=== PATIENT | male | born 1995 | race Caucasian/White ===

== ENCOUNTER 2022-10-11 08:03 | Day surgery (SDC) | payer BC ==
--- NOTE | 2022-10-10 09:47 | HP ---
DATE OF SURGERY: 10/11/2022 HISTORY OF PRESENT ILLNESS: The patient is a 27-year-old male presents with perirectal abscess. He had been sent over by Dr. Derek Kelley. He had some abscess and itching there off and on for the past two years. It looks like he had been given antibiotics some time ago. It has drained a little bit yellowish-red at times not really going away. He has been on some antibiotic currently. It does not hurt him today. PAST MEDICAL HISTORY: Hypertension, diabetes. PAST SURGICAL HISTORY: Myringotomy. ALLERGIES: NKDA. SHRIMP. MEDICATIONS: Lisinopril, NovoLog, Levemir. FAMILY HISTORY: None reported. SOCIAL HISTORY: Occasional alcohol. REVIEW OF SYSTEMS: CONSTITUTIONAL: Denies fever or chills. CHEST: Denies shortness of breath. CVS: Denies chest pain. ABDOMEN: Denies abdominal pain. PHYSICAL EXAMINATION: GENERAL: No acute distress. CHEST: Nonlabored. No shortness of breath. CVS: Regular rate and rhythm. ABDOMEN: Soft. : Left sided anal palpable bulge that is not tender on exam. IMPRESSION: Perirectal abscess. PLAN: Rectal exam under anesthesia with excision of perirectal abscess with Dr. Nadir Mirza. As dictated by Sasha Mccabe NP.
[2022-10-11] MEDS ORDERED: EXPAREL 133 MG/10 ML VIAL IJ ONE (08:04)
[2022-10-11] MEDS ORDERED: CLINDAMYCIN-D5W 900 MG/50 ML IV ONE (08:04)
[2022-10-11] MEDS ORDERED: Lactated Ringers 1,000 ML IV SCH (08:30)
[2022-10-11] MEDS ORDERED: Zofran 4 MG/2 ML VIAL ONE (09:34)
[2022-10-11] MEDS ORDERED: Decadron 4 MG INJ ONE (09:34)
[2022-10-11] MEDS ORDERED: Xylocaine-Mpf 2% 5 Ml Vial ONE (09:34)
[2022-10-11] MEDS ORDERED: Zemuron 100 MG/10 ML ONE (09:36)
[2022-10-11] MEDS ORDERED: SUBLIMAZE 100 MCG/2 ML ONE (09:37)
[2022-10-11] MEDS ORDERED: DIPRIVAN 200 MG/20 ML IV ONE (09:37)
[2022-10-11] MEDS ORDERED: Pre-Attached Lta Kit TP ONE (09:56)
[2022-10-11] MEDS ORDERED: Sensorcaine 0.25% 10 ML ONE (10:04)
[2022-10-11] MEDS ORDERED: BRIDION 200MG/2ML IV ONE (10:23)
[2022-10-11] MEDS ORDERED: Ephedrine Sulfate 50 MG/ML ONE (10:39)
[2022-10-11 12:10] VITALS: O2SAT 99
[2022-10-11 12:37] VITALS: BP 131/74; PULSE 87
--- NOTE | 2022-10-11 14:51 | OP ---
SURGERY DATE/TIME: 10/11/2022 1025 PREOPERATIVE DIAGNOSIS: Perirectal abscess. POSTOPERATIVE DIAGNOSIS: Hidradenitis. PROCEDURE: Excision of area of hidradenitis 4 inches long and nearly an inch wide and nearly an inch deep with packing. SURGEON: Nadir Mirza M.D. ANESTHESIA: General. COMPLICATIONS: None. CONDITION: Stable. DESCRIPTION OF PROCEDURE: The patient went to surgery. Lithotomy. A good view was present at this time. He has hidradenitis right greater than left. One small cyst on the left just barely across the midline. On the right side this area was 4 inches long and was elliptically excised. Fairly narrow at the top and at the middle but at the bottom was widened. It was nearly an inch wide and an inch deep. Hemostasis obtained with electrocautery. There was no violation of the anus or anal musculature but it was closed from the medial aspect. It was packed with Iodoform. The patient tolerated the procedure satisfactorily.
== END 2022-10-11 12:20 | disposition home or self-care (01) ==
LOC: SDC 08:03
PROVIDERS: ATTEND Surgery
DX: L73.2 Hidradenitis suppurativa (principal); K61.1 Rectal abscess; E11.9 Type 2 diabetes mellitus without complications
CPT/HCPCS: 82947; 87070; 87075; 87116; 87205; 87206; J1100; J2405; J2704; J3010